=== PATIENT | female | born 1990 | race Caucasian/White ===

== ENCOUNTER 2020-06-28 11:00 | Outpatient (CLI) | payer OTHER, SELFPAY ==
--- NOTE | ~2020-06-28 | US_ITS ---
EXAMINATION: US OB follow up DATE: 06/28/2020 11:39 INDICATION: Dating of TECHNIQUE: Real-time ultrasound of the pelvis was performed. The interpreting radiologist was not pre sent for the study. COMPARISON: None. FINDINGS: There is a single living fetus in breech presentation. The placenta is anterior. heart rate is 150 beats per minute (bpm). The amniotic fluid index is 17.4 cm, which is normal (5th%-95%: 9.8-21. 9 cm at 24 weeks estimated gestational age). The following biometric data were obtained: BPD: 6.0 cm -> 24 weeks 4 days Head circumference: 22.8 cm -> 24 weeks 6 days Abdominal circumference: 20.9 cm -> 25 weeks 3 days Femur length: 4.5 cm -> 24 weeks 5 days These measurements are concordant. Head circumference to abdominal circumference ratio: 1.09 (normal range 1.04-1.22). Estimated weight: 767 g (+/-) 115 g. or 1 lbs. 11 oz. (+/-) 4 oz. IMPRESSION: 1. Single living fetus in breech presentation with heart rate of 150 bpm. 2. Gestational age by ultrasound of 24 weeks 6 day(s) +/- 1 week(s) 5 day(s) with ultrasound estimate d date of delivery (APOLINAR) of 10/12/2020. Please correlate with clinical information or earlier ultrasou nds for most accurate APOLINAR. 3. Normal amniotic fluid index of 17.4 cm. Reviewed, dictated and finalized at location B. IMPRESSION: 1. Single living fetus in breech presentation with heart rate of 150 bpm. 2. Gestational age by ultrasound of 24 weeks 6 day(s) +/- 1 week(s) 5 day(s) wi th ultrasound estimated date of delivery (APOLINAR) of 10/12/2020. Please correlate w ith clinical information or earlier ultrasounds for most accurate APOLINAR. 3. Normal amniotic fluid index of 17.4 cm.
== END 2020-06-28 11:01 | disposition home or self-care (01) ==
LOC: ANHIMG 11:09
PROVIDERS: Visit Provider Obstetrics & Gynecology
DX: Z34.92 Encounter for supervision of normal pregnancy, unspecified, second trimester (principal); Z3A.24 24 weeks gestation of pregnancy
CPT/HCPCS: 76816

== ENCOUNTER 2020-09-13 11:46 | Observation (INO) | payer OTHER, SELFPAY ==
[2020-09-13] VITALS (23 sets, daily range): BP systolic 108–134; BP diastolic 55–83; PULSE 64–98; TEMP 36.6; O2SAT 97–100
--- NOTE | ~2020-09-13 | US_ITS ---
EXAMINATION: US OB follow up DATE: 09/13/2020 13:23 INDICATION: labor, third trimester TECHNIQUE: Real-time ultrasound of the pelvis was performed. The interpreting radiologist was not pre sent for the study. COMPARISON: 06/28/2020 FINDINGS: There is a single living fetus in vertex presentation. The placenta is anterior. card iac activity and movement are noted. heart rate is 163 beats per minute (bpm). The amniot ic fluid index is 17.6 cm which is normal. The following biometric data were obtained: Biparietal diameter (BPD): 8.8 cm; head circumference (HC): 31.4 cm; abdominal circumference (AC): 30 .5 cm; femur length (FL): 6.4 cm. These measurements are concordant. Estimated weight is 2414 g +/- 362 g, which correlates with the 24th percentile when 10/16/2020 is used as estimated date of delivery. As single measurements, these parameters are each equal to the following estimated gestational ages w ith ranges of +/- 2 standard deviations: BPD: 35 weeks 5 days ( 32 weeks 4 days - 38 weeks 5 days). HC: 35 weeks 2 days ( 32 weeks 2 days - 38 weeks 1 days). AC: 34 weeks 4 days ( 31 weeks 4 days - 37 weeks 3 days). FL: 33 weeks 2 days ( 30 weeks 3 days - 36 weeks 2 days). estimated gestational age based solely on measurements from this exam is 34 weeks 5 days +/- 2 weeks 3 days. IMPRESSION: 1. Single living fetus in vertex presentation. 2. Estimated weight is 2414 g +/- 362 g, which correlates with the 24th percentile when 10/16/19 21 is used as estimated date of delivery. 3. Normal amniotic fluid index. Reviewed, dictated and finalized at location A. [employer] IMPRESSION: 1. Single living fetus in vertex presentation. 2. Estimated weight is 2414 g +/- 362 g, which correlates with the 24th p ercentile when 10/16/2020 is used as estimated date of delivery. 3. Normal amniotic fluid index.
[2020-09-13 13:19] LABS: Add Urine Microscopic? YES; Appearance Urine Turbid (Clear); Bacteria Urine 2+ /hpf; Bilirubin Urine Negative (Negative); Blood Urine 1+ (Negative); Color Urine Yellow (Yellow); Glucose Urine UA Negative (Negative); Ketones Urine 1+ mg/dL (Negative); Leukocyte Esterase Ur 3+ LEU/UL (NEGATIVE); Mucus Urine Moderate /lpf; Nitrate Urine Negative (Negative); Protein Urine 2+ mg/dL (Negative); RBC Urine 21-50 /hpf (0-2); Specific Grav Ur 1.013 (1.001-1.035); Squamous Epithelial Cell Urine Moderate /hpf (Few); Urobilinogen Urine Negative mg/dL (<2.0); WBC Urine >75 /hpf (0-3)
[2020-09-13 13:20] LABS: Amphetamine Screen Urine Negative (Negative); Barbiturate Screen Urine Negative (Negative); Benzodiazepines Screen Urine Negative (Negative); Cannabinoid Screen Urine Negative (Negative); Cocaine Screen Urine Negative (Negative); Methadone Screen Urine Negative (Negative); Opiate Screen Urine Negative (Negative); Phencyclidine Screen Urine Negative (Negative)
[2020-09-13 13:22] LABS: Basophils Absolute Auto 0.1 K/mm3 (0.0-0.1); Basophils Percent Auto 0.4 % (0.2-1.2); Eosinophils Absolute Auto 0.1 K/mm3 (0-0.3); Eosinophils Percent Auto 0.8 % (0-4.4); Hematocrit 29.1 % (37.0-47.0); Hemoglobin 9.2 g/dL (12.0-15.0); Immature Granulocyte Absolute 0.08 K/mm3 (0.00-0.031); Immature Granulocyte Percent A 0.7 % (0-0.5); Lymphocytes Absolute Auto 0.97 K/mm3 (0.9-3.2); Lymphocytes Percent Auto 8.4 % (18.3-44.2); Mean Corpuscular HGB Conc 31.6 g/dl (32-36); Mean Corpuscular Hemoglobin 24.6 pg (26-34); Mean Corpuscular Volume 77.8 fl (80-100); Monocytes Percent Auto 8.7 % (2.6-8.5); Neutrophils Absolute Auto 9.4 K/mm3 (1.3-6.7); Platelet Count Result 265 k/mm3 (150-375); Red Blood Count 3.74 M/mm3 (4.2-5.4); Red Cell Distribution Width 14.6 % (11.5-14.5); White Blood Count 11.6 K/mm3 (4.5-10.0)
--- NOTE | 2020-09-13 13:34 | OBADM ---
This patient, Amira Barnhart, admitted to the OB room Labor/Delivery/Recovery 107 for observation. Patient/family oriented to hospital policies and general routines including ID bracelet, bed and alarms, visiting hours, pain management, procedures, bathroom and other care routines, personal items, smoking policy, room service/diet, and visiting hours. Patient/Family are encouraged to report perceived risks to care and to ask questions if they do not understand what they are told or what they should do.
[2020-09-13] MEDS: LACTATED RINGERS 1,000 ML 125 ML IV CONT (13:44)
[2020-09-13 13:57] LABS: HIV 1/2 Ab P24 Ag Result Negative (Negative)
--- NOTE | 2020-09-13 14:18 | PC.NURSE ---
1213- called,informed pt came in by ambulance for abdominal pain. Pt is 35 2/7 weeks and hasn't seen him in the office since May. Informed pt has irregular contractions. Orders received for labs and US.
--- NOTE | 2020-09-13 14:20 | PC.NURSE ---
1254- called back, updated on SVE of 2-2.5cm and that contractions have increased in intensity and frequency. Orders received for IVF's.
--- NOTE | 2020-09-13 14:21 | PC.NURSE ---
1411- called back, read US report and lab results. Orders received for terbutaline, procardia, celestone, and ancef. Continue to monitor pt, is signing out to weapons designer Dr. leahy.
[2020-09-13] MEDS: BETAMETHASONE SOD PHOS/ACETATE 30 MG/5 ML VIAL 12 MG IM (14:30)
[2020-09-13] MEDS: ceFAZolin 2 GM/D5W 50 ML 2 GM/50 ML BAG IVPB (14:31)
[2020-09-13] MEDS: TERBUTALINE SULFATE 1 MG/ML VIAL 0.25 MG SUB-Q ×3 (14:31→16:06)
[2020-09-13] MEDS: NIFEdipine 30 MG TAB.ER.24 PO (14:32)
[2020-09-14 10:23] LABS: Rapid Plasma Reagin Non-Reactive (NonReactive)
--- NOTE | 2020-09-14 21:56 | PM.OBTRLD ---
OB - Triage/Final Diagnosis Visit Information Reason for evaluation: threatened labor Evaluation Laboratory results: Laboratory Tests 09/13/20 09/13/20 09/13/20 12:40 12:40 12:43 WBC RBC Hgb Hct MCV MCH MCHC RDW Plt Count MPV Immature Gran % (Auto) Neut % (Auto) Lymph % (Auto) Bartholomew % (Auto) Eos % (Auto) Baso % (Auto) Lymph # (Auto) [place]th[place]omew # (Auto) Eos # (Auto) Baso # (Auto) Abs Immat Gran (auto) Absolute Neuts (auto) Absolute Nucleated RBC Nucleated RBC % Urine Color Yellow Urine Appearance Turbid H Urine pH 6.0 Ur Specific [place] 1.013 Urine Protein 2+ H Urine Glucose (UA) Negative Urine Ketones 1+ H Ur Blood (Man) 1+ H Urine Nitrate Negative Urine Bilirubin Negative Urine Urobilinogen Negative Ur Leukocyte Esterase 3+ H Urine RBC 21-50 H Urine WBC >75 H Ur Squamous Epith Cells Moderate H Urine Bacteria 2+ H Urine Mucus Moderate H Urine Opiates Screen Urine Methadone Screen Ur Barbiturates Screen Ur Phencyclidine Scrn Ur Amphetamine Screen U Benzodiazepines Scrn Urine Cocaine Screen U Cannabinoids Screen RPR Non-reactive HIV 1&2 Ab/P24 Ag 4thGn Negative Blood Type Antibody Screen 09/13/20 09/13/20 09/13/20 12:43 13:13 13:13 WBC 11.6 H RBC 3.74 L Hgb 9.2 L Hct 29.1 L MCV 77.8 L MCH 24.6 L MCHC 31.6 L RDW 14.6 H Plt Count 265 MPV 11.0 H Immature Gran % (Auto) 0.7 H Neut % (Auto) 81.0 H Lymph % (Auto) 8.4 L Bartholomew % (Auto) 8.7 H Eos % (Auto) 0.8 Baso % (Auto) 0.4 Lymph # (Auto) 0.97 [place]th[place]omew # (Auto) 1.0 H Eos # (Auto) 0.1 Baso # (Auto) 0.1 Abs Immat Gran (auto) 0.08 H Absolute Neuts (auto) 9.4 H Absolute Nucleated RBC 0.0 Nucleated RBC % 0.0 Urine Color Urine Appearance Urine pH Ur Specific [place] Urine Protein Urine Glucose (UA) Urine Ketones Ur Blood (Man) Urine Nitrate Urine Bilirubin Urine Urobilinogen Ur Leukocyte Esterase Urine RBC Urine WBC Ur Squamous Epith Cells Urine Bacteria Urine Mucus Urine Opiates Screen Negative Urine Methadone Screen Negative Ur Barbiturates Screen Negative Ur Phencyclidine Scrn Negative Ur Amphetamine Screen Negative U Benzodiazepines Scrn Negative Urine Cocaine Screen Negative U Cannabinoids Screen Negative RPR HIV 1&2 Ab/P24 Ag 4thGn Blood Type A Positive Antibody Screen Negative
== END 2020-09-13 16:50 | disposition home or self-care (01) ==
PROVIDERS: Admitting Provider Obstetrics & Gynecology; Visit Provider Obstetrics & Gynecology
DX: O47.03 False labor before 37 completed weeks of gestation, third trimester (principal); Z3A.35 35 weeks gestation of pregnancy
CPT/HCPCS: 36415; 76816; 80307; 81001; 85025; 86592; 86703; 86850; 86900; 86901; 87077; 87081; 87086; 87088; 87186; 96365; 96366; 96372; A9270; G0378; G0379; G0432; J0690; J0702; J3105; J7120

== ENCOUNTER 2020-09-14 14:12 | Outpatient (CLI) | payer OTHER, SELFPAY ==
[2020-09-14] MEDS: BETAMETHASONE SOD PHOS/ACETATE 30 MG/5 ML VIAL 12 MG IM (14:32)
== END 2020-09-14 14:13 | disposition home or self-care (01) ==
LOC: ANHOBOP 14:21
PROVIDERS: Visit Provider Obstetrics & Gynecology
DX: O36.8990 Maternal care for other specified fetal problems, unspecified trimester, not applicable or unspecified (principal); Z3A.00 Weeks of gestation of pregnancy not specified
CPT/HCPCS: J0702

== ENCOUNTER 2020-10-14 00:01 | Inpatient (IN) | payer OTHER, SELFPAY ==
[2020-10-14] VITALS (11 sets, daily range): BP systolic 116–140; BP diastolic 69–92; PULSE 59–102; RESP 18; TEMP 36.6–37.1; BMI 22.6
[2020-10-14] MEDS: OXYTOCIN 30 UNITS/NS 500 ML 30 UNITS/500 ML BAG 999 UNITS IV CONT (00:29)
[2020-10-14 00:40] LABS: Basophils Absolute Auto 0.1 K/mm3 (0.0-0.1); Eosinophils Absolute Auto 0.2 K/mm3 (0-0.3); Eosinophils Percent Auto 1.3 % (0-4.4); Hemoglobin 10.5 g/dL (12.0-15.0); Immature Granulocyte Absolute 0.13 K/mm3 (0.00-0.031); Lymphocytes Absolute Auto 2.84 K/mm3 (0.9-3.2); Lymphocytes Percent Auto 22.5 % (18.3-44.2); Mean Corpuscular HGB Conc 32.8 g/dl (32-36); Mean Corpuscular Hemoglobin 24.5 pg (26-34); Mean Corpuscular Volume 74.8 fl (80-100); Mean Platelet Volume 10.5 fl (7.4-10.4); Monocytes Absolute Auto 1.2 K/mm3 (0.1-0.6); Monocytes Percent Auto 9.6 % (2.6-8.5); Neutrophils Absolute Auto 8.2 K/mm3 (1.3-6.7); Neutrophils Percent Auto 64.6 % (45.5-73.1); Platelet Count Result 451 k/mm3 (150-375); Red Blood Count 4.28 M/mm3 (4.2-5.4); Red Cell Distribution Width 16.5 % (11.5-14.5); White Blood Count 12.7 K/mm3 (4.5-10.0)
--- NOTE | 2020-10-14 00:53 | LDADM ---
This patient, Amira Barnhart, was admitted to Labor/Delivery/Recovery 105 on 10/14/20 at 00:12. Plans for labor, pain management and were discussed with patient. Patient/family oriented to hospital policies and general routines including ID bracelet, bed and alarms, visiting hours, pain management, procedures, bathroom and other care routines, personal items, smoking policy, room service/diet and guest tray routines, security routines, and visiting hours. Patient/Family are encouraged to report perceived risks to care and to ask questions if they do not understand what they are told or what they should do. See OBIX for further documentation.
[2020-10-14] MEDS: OXYTOCIN 30 UNITS/NS 500 ML 30 UNITS/500 ML BAG 125 UNITS IV CONT (01:01)
[2020-10-14 01:40] LABS: HIV 1/2 Ab P24 Ag Result Negative (Negative)
--- NOTE | 2020-10-14 01:58 | PM.IMHP ---
H&P: HPI History of Present Illness Date/Time: 10/14/20 01:58 Chief Complaint: Spontaneous rupture of membranes, Spontaneous active labor Narrative: Amira Barnhart is a 30 year old female at 39w4d with Insufficient care only one visit 05/30/20; MTHFR, GBS; UTI-e coli; bv,ca, rubella non immune; sga and 2 prior spontaneous vaginal deliveries presenting for SROM 2330 at home thick meconium presents to [facility] on 10/14/20 0001 8cm dilated active labor and delivered 0023 NSVVD viable male apgars 8+9 wt-6-10 placenta with first degree perineal laceration needing repair under local [id number] Review of Systems Review of Systems: All systems reviewed & are unremarkable except as noted in HPI and below Constitutional: Constitutional: Reports no additional constitutional complaints Eyes: Eyes: Reports no additional eye complaints ENT: Reports system reviewed and no additional complaints, except as documented Cardiovascular: Cardiovascular: Reports no additional cardiovascular complaints Respiratory: Respiratory: Reports no additional respiratory complaints Gastrointestinal: Gastrointestinal: Reports no additional gastrointestinal complaints Genitourinary: Genitourinary: Reports no additional female genitourinary complaints Musculoskeletal: Musculoskeletal: Reports no additional musculoskeletal complaints Integumentary/Breasts: Skin/Breast: Reports system reviewed and no additional complaints, except as docu Neurologic: Reports system reviewed and no additional complaints, except as documented Psychiatric: Psychiatric: Reports no additional psychiatric complaints Endocrine: Endocrine: Reports no additional endocrine complaints Hematologic/Lymphatic: Hematologic/Lymphatic: Reports no additional hematologic/lymphatic complaints Allergic/Immunologic: Allergic/Immunologic: Reports no additional allergic/immunologic complaints [facility] Past Medical History Medical History (Updated 10/14/20 @ 02:32 by Mark Cabrera MD) BV (bacterial vaginosis) Candidiasis of vagina GBS (group B Streptococcus carrier), +RV culture, currently Heterozygous MTHFR mutation [id number] Insufficient care Rubella non-immune status, antepartum UTI (urinary tract infection) in , antepartum Vaginal delivery 08-31-2017 Full Term Female 6 lbs 4oz Standard Vaginal Delivery Gestational age 40 weeks Labor length 2 hrs [facility] Vaginal delivery 06-01-2019 Full Term Female Standard Vaginal delivery Gestational age 37.6 weeks Anesthesia None [facility] Social History Social History (Updated 10/14/20 @ 02:29 by Mark Cabrera MD) Smoking status: Never smoker Second hand tobacco smoke exposure: Yes Alcohol intake: never Substance use: never Substance use type: does not use Living arrangements: with family Occupation/Education: unemployed Gender identity (if verbalized by the patient): Female Sexual Orientation (if Verbalized by the Patient): Straight or Heterosexual Spiritual care concerns: No Agree to blood products: Yes Meds Home Medications and Allergies Home Medications Medication Instructions Recorded Confirmed Type No Home Medications 09/13/20 09/13/20 History Allergies Allergy/AdvReac Type Severity Reaction Status Date / Time No Known Allergies Allergy Verified 11/18/17 11:15 Vital Signs Vital Signs - 24 hr 10/14/20 00:43 10/14/20 00:45 10/14/20 01:00 Pulse Rate 102 H 85 79 Blood Pressure 127/91 H 135/69 140/92 H 10/14/20 01:15 10/14/20 01:45 Pulse Rate 73 67 Blood Pressure 120/91 H 121/85 Exam Const: General: cooperative, healthy appearing, comfortable, no acute distress, well developed, alert, awake and Physically active Nutritional Appearance: average body habitus and thin Orientation/consciousness: patient oriented x3 Limitations: no limitations HENMT: Head: normal to inspection Eyes: General:
--- NOTE | 2020-10-14 02:02 | WPDHPUPDATE1 ---
History and Physical Update Update Date/Time: 10/14/20 02:02 History and Physical has been reviewed, including an updated exam of the patient. There are NO changes in the patient's condition. Risks, benefits, and alternatives have been discussed and questions answered. Patient agrees to proceed with procedure. Amira Barnhart is a 30 year old female at 39w4d presenting for SROM 2330 at home thick meconium presents to [facility] on 10/14/20 0001 8cm dilated active labor and delivered 0023 NSVVD viable male apgars 8+9 wt-6-10 placenta with first degree perineal laceration needing repair under local [id number]
--- NOTE | 2020-10-14 02:03 | WPDOBADMIT ---
Obstetrics - Admit Note Admission Note: record reviewed. No pertinent additions to the history and/or any subsequent changes in the physical findings that are not consistent with the expected course of the were found. Additions to the history and/or subsequent changes in the physical findings follow. None. Amira Barnhart is a 30 year old female at 39w4d presenting for SROM 2330 at home thick meconium presents to [facility] on 10/14/20 0001 8cm dilated active labor and delivered 0023 NSVVD viable male apgars 8+9 wt-6-10 placenta with first degree perineal laceration needing repair under local [id number]
--- NOTE | 2020-10-14 02:34 | PM.OBPRVD ---
OB - Delivery Note Procedure Delivery date: 10/14/20 Procedure: Normal spontaneous vertex vaginal delivery of viable male infant and placenta repair of first degree perineal laceration Intrapartal events: Precipitous Labor < 3 hours Induction method: none Delivery monitor: external FHT and external uterine Route of delivery: Episiotomy description: None Laceration Description: Perineal - 1st Degree Delivery repair: chromic (2-0) Specimen: Yes Quantitative Blood Loss (ml): 150 Anesthesia type: Local Disposition: floor Complications: none Narrative: normal spontaneous vertex vaginal delivery of viable male infant and placenta over intact perineum with normal delivery of shoulders viable male spontaneous respiration and cry normal transition first degree perineal laceration repaired under local anesthesia with 2-0 chromic suture in usual fashion cervix and rectum checked no fistula sphincter intact no sponge left in vagina counts correct Baby Date of : 10/14/20 Time of : 00:23 Weeks of gestation at delivery: 39 Infant gender: Male Weight (pounds): 6 Weight (ounces): 10 presentation: vertex position: Left Occiput Anterior Placenta delivery description: Spontaneous and Normal Configuration cord vessel description: 3 Vessels score one minute: 8 score five minutes: 9 Narrative: thick meconium, gbs
[2020-10-14] MEDS: DOCUSATE SODIUM 100 MG CAPSULE PO ×2 (08:26→15:21)
[2020-10-14] MEDS: IBUPROFEN 600 MG TABLET PO ×3 (08:26→21:02)
--- NOTE | 2020-10-14 14:24 | PCCCNOTE ---
Care Coordination: Pt. referred to CC for limited care and questionable resources. Met with pt. and FOB Estephanie at bedside. Pt. reports this is her third baby; she has two baby girls at home - ages two and one. Pt. reports she lives with FOAlexia Hummel, her mother, and her grandmother. Pt. reports Estephanie is FOB of all three children. Pt. reports they have support from both sides of their families and they have all needed baby supplies/resources. Pt. states she had one appt scheduled in August but missed it due to transportation issues. Pt. is already set up with [employer] and reports she has [place] Medicaid insurance. Pt. did report she and FOB have had involvement with DCFS three times but the case was closed each instance. CC concerned due to something seeming off between pt. and FOB relationship. FOB seems overbearing; FOB spoke over pt. multiple times when CC asked pt. questions. Per Nursing and CC, pt. seems to be struggling with caring for the baby regarding feedings. FOB does seem appropriate with baby from what CC seen. Filed a report with DCFS worker - Esther Han Intake #[id number]. Esther Han reports they will try to have a case therapist go to the home within ten business days to do a welfare check but they are not taking a report/doing an investigation due to the lack of evidence of harm being done to the .
[2020-10-15 05:14] LABS: Hematocrit 26.3 % (37.0-47.0); Hemoglobin 8.4 g/dL (12.0-15.0)
[2020-10-15] MEDS: IBUPROFEN 600 MG TABLET PO ×3 (06:28→09:33)
[2020-10-15 07:45] VITALS: BP 131/86; PULSE 80; RESP 16; TEMP 37.1
--- NOTE | 2020-10-15 08:41 | PM.OBDSVD ---
DS: Admitting Diagnosis Admitting Diagnosis Admitting Diagnosis: term srom spontaneous labor insufficient care MTHFR GBS rubella non immune DS: Discharge Diagnosis Discharge Diagnosis (1) Term delivered: Code(s): O80 - Encounter for full-term uncomplicated delivery Status: Acute (2) Spontaneous onset of labor: Status: Acute (3) Meconium in amniotic fluid: Code(s): P96.83 - Meconium staining Status: Acute (4) SROM (spontaneous rupture of membranes): Status: Acute (5) Insufficient care: Code(s): O09.30 - Supervision of with insufficient care, unspecified trimester Status: Acute (6) GBS (group B Streptococcus carrier), +RV culture, currently : Code(s): O99.820 - Streptococcus B carrier state complicating Status: Acute (7) Heterozygous MTHFR mutation C677T: Code(s): E72.12 - Methylenetetrahydrofolate reductase deficiency Status: Acute OB - DS: Summary Hospital Course Time spent discussing smoking cessation with patient: 3 to 10 minutes OB Procedures : Ultrasound OB Procedures Intrapartum: Spontaneous Vag Delivery and GBS prophylaxis OB Procedures: : None and Rubella lg Peripartum Data Delivery Method: Natural Vaginal Laceration Description: Perineal - 1st Degree Episiotomy description: None complications: none [place] 1: Gender: Male Disposition of : home Status at Discharge Functional status at discharge: independent ambulation Overall status at discharge: patient is back to baseline Time Spent with Patient Time attestation: Total time spent providing and/or coordinating discharge services: Time spent: Less than 30 minutes Exam Const: General: cooperative, healthy appearing, comfortable, no acute distress, well developed, alert, awake and Physically active Nutritional Appearance: average body habitus and thin Orientation/consciousness: patient oriented x3 Limitations: no limitations HENMT: Head: normal to inspection Eyes: General: appearance normal, both eyes and all related structures Neck: Neck: normal visual inspection Chest: Chest palpation & inspection: normal inspection of the chest Resp: Effort & Inspection: normal respiratory effort Cardio: Rate: regular rate Rhythm: regular rhythm GI: Inspection: normal to inspection GI Palp: Yes Soft to palpation Percussion: Yes normal to percussion Auscultation: normal bowel sounds : External Female Exam: normal external appearance Back/Spine/Pelvis: Back: no CVA tenderness Skin: General skin exam: normal color Neuro: General: patient oriented x3, gait normal, tone normal and moves all extremities Extrem: General: normal to inspection, full ROM and no calf tenderness Psych: Appearance: grossly normal Mental Status: mental status grossly normal Speech and movement: Normal speech and movement present Affect: Indifferent affect present Attitude: cooperative Thought process: Normal thought process present Thought content: Yes Normal thought content present Insight: Good insight present (Psych) and Fair insight present (Psych) Judgement: Good judgement present (Psych) and Fair judgement present (Psych) DS: Data Data Completed and Pending Pending studies at discharge: Pending at discharge 10/14/20 00:27 Surgical [PTH] Routine Labs on day of discharge: Labs from last 24 hours 10/14/20 10/14/20 10/14/20 00:37 00:35 00:35 WBC RBC Hgb Hct MCV MCH MCHC RDW Plt Count MPV Immature Gran % (Auto) Neut % (Auto) Lymph % (Auto) [place] % (Auto) Eos % (Auto) Baso % (Auto) Lymph # (Auto) [place] # (Auto) Eos # (Auto) Baso # (Auto) Abs Immat Gran (auto) Absolute Neuts (auto) Absolute Nucleated RBC Nucleated RBC % Urine Opiates Screen Pending Urine Metha
[2020-10-15 08:49] LABS: Rapid Plasma Reagin Non-Reactive (NonReactive)
--- NOTE | 2020-10-15 08:56 | P.PNOB_ITS ---
OB - PN: Subj Subjective Date/time seen: 10/15/20 08:56 Patient comments: no complaints, pain well controlled, tolerating diet and flatus present [place] baby status: doing well and bottle feeding well [place] feeding status: exclusively bottle feeding OB - PN: Obj Data Labs CBC & Chem 7: 10/15/20 04:55 Labs: Laboratory Results - last 24 hr 10/14/20 10/15/20 00:35 04:55 Hgb 8.4 L Hct 26.3 L RPR Non-reactive OB - PN A/P Assessment and Plan (1) Term delivered: Code(s): O80 - Encounter for full-term uncomplicated delivery Status: Acute Plan day: 1 Plan: routine care, discharge home and follow up 6 weeks Time Spent With Patient Time: Total time spent is greater than 50% in coordination of care (as documented) at patient's floor/unit and/or counseling patient: Time with patient: less than 15 minutes Review of Systems Review of Systems: All systems reviewed & are unremarkable except as noted in HPI and below Exam Const: General: cooperative, healthy appearing, comfortable, no acute distress, well developed, alert, awake and Physically active Nutritional Appearance: average body habitus and thin Orientation/consciousness: patient oriented x3 Limitations: no limitations HENMT: Head: normal to inspection Eyes: General: appearance normal, both eyes and all related structures Neck: Neck: normal visual inspection Chest: Chest palpation & inspection: normal inspection of the chest Resp: Effort & Inspection: normal respiratory effort Cardio: Rate: regular rate Rhythm: regular rhythm GI: Inspection: normal to inspection : External Female Exam: normal external appearance Back/Spine/Pelvis: Back: no CVA tenderness Skin: General skin exam: normal color Neuro: General: patient oriented x3, gait normal, tone normal and moves all extremities Extrem: General: normal to inspection Psych: Appearance: grossly normal Mental Status: mental status grossly normal Speech and movement: Normal speech and movement present Affect: normal affect Attitude: cooperative Thought process: Normal thought process present Thought content: Yes Normal thought content present Insight: Good insight present (Psych) Judgement: Good judgement present (Psych)
[2020-10-15] MEDS: DOCUSATE SODIUM 100 MG CAPSULE PO (09:33)
[2020-10-15] MEDS: POLYSACCHARIDE IRON COMPLEX 150 MG CAPSULE PO (09:33)
[2020-10-15] MEDS: medroxyPROGESTERone ACETATE IM 150 MG/ML SYR IM (09:33)
--- NOTE | 2020-10-15 10:15 | PC.NURSE ---
Patient instructed to view the discharge video Mother & Baby Care, The First Two Weeks . Patient was given the opportunity and encouraged to ask questions. Patient verbalized understanding of information shared and has been given the mother/baby guide for home reference.
== END 2020-10-15 13:14 | disposition home or self-care (01) | DRG 560 ==
LOC: ANHLDR 02:49 → ANHOB2 02:52
PROVIDERS: Admitting Provider Obstetrics & Gynecology; Visit Provider Obstetrics & Gynecology
DX: O77.0 Labor and delivery complicated by meconium in amniotic fluid (principal); O62.3 Precipitate labor; O70.0 First degree perineal laceration during delivery; O99.824 Streptococcus B carrier state complicating childbirth; Z3A.39 39 weeks gestation of pregnancy; Z37.0 Single live birth
CPT/HCPCS: 36415; 80307; 84112; 85014; 85018; 85025; 86592; 86703; 86850; 86900; 86901; 88307; A9270; G0432; J1050; J2590

== ENCOUNTER 2021-03-03 16:33 | Emergency (ER) | payer OTHER, SELFPAY ==
[2021-03-03 16:43] VITALS: BP 118/65; PULSE 103; RESP 16; TEMP 37.3; O2SAT 100
--- NOTE | 2021-03-03 16:50 | ED.DENTAL ---
HPI - Dental/Oral General Chief complaint: Dental/Oral Stated complaint: tooth pain Source: patient and RN notes reviewed Limitations: no limitations History of Present Illness HPI Narrative: The patient-nonsmoker/ nondrinker- presents with a several day worsening, of months-long history, of tooth discomfort. This is associated with left lower jaw swelling; no fever, hoarseness, trismus, recent dental fractures/injury. Symptoms are mild worse upon eating Related Data Home Medications Medication Instructions Recorded Confirmed medroxyprogesterone mg IM 03/03/21 Allergies Allergy/AdvReac Type Severity Reaction Status Date / Time No Known Allergies Allergy Verified 11/18/17 11:15 Review of Systems Review of Systems: Narrative: General/Constitutional: No weight loss,fever Eyes: N0: Redness,discharge Ears/Nose/Throat: No: Epistaxis,ear discharge Respiratory: Denies: Hemoptysis Gastrointestinal: No Vomiting, Bleeding-rectal Skin: No Lumps, eruption Neurologic: No Focal Weakness,Sz Hematologic: Denies: Petechiae/Purpura Psychiatric: No: Suicida ideationl All Other Systems: Reviewed and Negative PMF Past Medical History Medical History (Updated 03/04/21 @ 00:00 by Background Daemon) BV (bacterial vaginosis) Candidiasis of vagina GBS (group B Streptococcus carrier), +RV culture, currently Heterozygous MTHFR mutation [id number] Insufficient care Rubella non-immune status, antepartum UTI (urinary tract infection) in , antepartum Vaginal delivery 08-31-2017 Full Term Female 6 lbs 4oz Standard Vaginal Delivery Gestational age 40 weeks Labor length 2 hrs [facility] Vaginal delivery 06-01-2019 Full Term Female Standard Vaginal delivery Gestational age 37.6 weeks Anesthesia None [facility] Social History Social History (Updated 10/14/20 @ 02:29 by Mark Cabrera MD) Smoking status: Never smoker Second hand tobacco smoke exposure: Yes Alcohol intake: never Substance use: never Substance use type: does not use Gender identity (if verbalized by the patient): Female Spiritual care concerns: No Agree to blood products: Yes Comments At time of signature, agree with nursing past medical, surgical, social and family history. There is no relevant family history pertinent to the presenting complaint Exam Narrative: Exam Narrative: General Appearance: Well appearing, Well nourished, EYE: PERRLA, EOMI, Conjunctiva clear Ears: External ear normal, Auditory canal normal Nose: Normal nose Mouth/Throat: Normal appearing (with mild left lower jaw swelling), Normal lips, MM moist, Uvula midline (scattered dental caries and fillings,, with rare fracture) Neck: Supple, No adenopathy Respiratory: Airway patent, No respiratory distress, Clear to auscultation Cardiovascular: RRR Musculoskeletal: Full ROM, Non tender, Normal strength Spine/Back: Normal ROM Skin: Warm, Dry, Normal color Neurological: A&O x3, Speech clear, CN II-XII intact Psychiatric: Normal mood, Normal affect Course Vital Signs Vital signs: Vital Signs Temperature 99.1 F 03/03/21 16:43 Pulse Rate 103 H 03/03/21 16:43 Respiratory Rate 16 03/03/21 16:43 Blood Pressure 118/65 03/03/21 16:43 Pulse Oximetry 100 03/03/21 16:43 Temperature 99.1 F 03/03/21 16:43 Pulse Rate 103 H 03/03/21 16:43 Respiratory Rate 16 03/03/21 16:43 Blood Pressure 118/65 03/03/21 16:43 Pulse Oximetry 100 03/03/21 16:43 Discharge Plan Discharge Clinical Impression: Acute gingivitis, Toothache Patient Disposition: Home, Self-Care Condition: Stable Instructions: Antibiotic Form, Toothache (ED) Prescriptions: New lidocaine HCl [Lidocaine Viscous] 2 % solution 5 ml MUCOUS MEM QID PRN (Reason: pain) Qty: 100 RF: 0 tramadol 50 mg tablet 50 - 75 mg PO TID PRN (Reason: pain) Qty: 20 RF: 0 acetaminophen-codeine 300-30 mg tablet 1 tablet P
== END 2021-03-03 17:00 | disposition home or self-care (01) ==
PROVIDERS: Emergency Provider Emergency Medicine
DX: K05.00 Acute gingivitis, plaque induced (principal); K08.89 Other specified disorders of teeth and supporting structures
CPT/HCPCS: 99213; G0463